=== PATIENT | female | born 1950 | race Caucasian/White ===

== ENCOUNTER 2017-02-08 22:34 | Observation (INO) | payer OTHER, MEDICARE ==
[2017-02-08] MEDS ORDERED: RX INFO: IV CONTRAST WAS GIVEN 1 EACH MISC MISCELLANE PRN (23:09)
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
[2017-02-08 23:53] LABS: Basophils % (A) 0 %; CH 30.6; CHCM 35.5; Eosinophils % (A) 1 %; HCT 37.3 % (34.0-46.0); HGB 12.5 gm/dL (11.4-16.0); Luc # (Auto) 0.05; Luc % (Auto) 1; Lymphocytes # (A) 1.1 k/uL (1.0-4.8); Lymphocytes % (A) 13 %; MCH 29.2 pg (25.0-35.0); MCHC 33.6 g/dL (31.0-37.0); MCV 86.8 fL (80.0-100.0); Mean Platelet Volume 7.7; Monocytes # (A) 0.3 k/uL (0-1.0); Monocytes % (A) 4 %; Neutrophils % (A) 82 %; RBC 4.29 m/uL (3.80-5.40); RDW 14.1 % (11.5-15.5); WBC 8.5 k/uL (3.8-10.6); WBC (Perox) 8.18
[2017-02-08 23:54] LABS: Appearance,Urine Clear (Clear); Bilirubin,Urine Negative (Negative); Glucose,Urine (UA) Negative (Negative); Ketones,Urine Negative (Negative); Leukocyte Esterase,Urine Negative (Negative); Nitrite,Urine Negative (Negative); Protein,Urine Negative (Negative); Specific Gravity,Urine 1.016 (1.001-1.035); UA Billing (MACRO vs. MICRO) CHEM; Urobilinogen,Urine <2.0 mg/dL (<2.0)
[2017-02-09 00:08] LABS: ALT 36 U/L (9-52); AST 22 U/L (14-36); Alcohol <10 mg/dL; Alkaline Phosphatase 77 U/L (38-126); Anion Gap 14 mmol/L; Blood Urea Nitrogen 19 mg/dL (7-17); Calcium 9.8 mg/dL (8.4-10.2); Carbon Dioxide 21 mmol/L (22-30); Chloride 99 mmol/L (98-107); Glucose 142 mg/dL (74-99); Non-African American GFR(MDRD) 35 (>60 ml/min/1.73 sqM); Potassium 3.8 mmol/L (3.5-5.1); Sodium 134 mmol/L (137-145); Total Bilirubin 0.5 mg/dL (0.2-1.3); Total Protein 6.7 g/dL (6.3-8.2)
[2017-02-09 00:10] LABS: INR 1.1 (<1.2); Partial Thromboplastin Time 24.2 sec (22.0-30.0); Prothrombin Time 11.2 sec (9.0-12.0)
[2017-02-09] MEDS ORDERED: SODIUM CHLORIDE 0.9% 2,500 ML IV ONE (00:15)
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
[2017-02-09] MEDS ORDERED: NALOXONE 0.4 MG/ML 1 ML VIAL IV PRN (02:52)
[2017-02-09] MEDS ORDERED: ONDANSETRON 4 MG/2 ML VIAL IVP PRN (02:52)
[2017-02-09] MEDS: SODIUM CHLORIDE 0.9% 1,000 ML IV SCH (03:39)
[2017-02-09] MEDS ORDERED: LORazepam 2 MG/ML INJ IV STA (03:54)
[2017-02-09 05:23] VITALS: BMI 38.1
[2017-02-09] MEDS: FAMOTIDINE 20 MG TAB PO SCH ×2 (08:28→20:30)
[2017-02-09] MEDS ORDERED: LORATADINE 10 MG TAB PO PRN (11:22)
[2017-02-09] MEDS: LISINOPRIL-HCTZ 20-12.5 MG 1 EACH TAB PO SCH ×2 (13:41→20:30)
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
[2017-02-09] MEDS: ATORVASTATIN 20 MG TAB PO SCH (20:30)
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
[2017-02-10] MEDS: SODIUM CHLORIDE 0.9% 1,000 ML IV SCH (02:52)
[2017-02-10] MEDS: FAMOTIDINE 20 MG TAB PO SCH (08:38)
[2017-02-10] MEDS: LISINOPRIL-HCTZ 20-12.5 MG 1 EACH TAB PO SCH ×2 (08:38→22:10)
[2017-02-10 08:56] LABS: Basophils % (A) 1 %; CH 29.5; CHCM 33.1; Eosinophils # (A) 0.1 k/uL (0-0.7); Eosinophils % (A) 1 %; HCT 38.5 % (34.0-46.0); HDW 2.56; HGB 12.6 gm/dL (11.4-16.0); Luc # (Auto) 0.06; Luc % (Auto) 1; Lymphocytes # (A) 1.5 k/uL (1.0-4.8); Lymphocytes % (A) 27 %; MCH 29.4 pg (25.0-35.0); MCHC 32.8 g/dL (31.0-37.0); MCV 89.6 fL (80.0-100.0); Mean Platelet Volume 7.2; Monocytes # (A) 0.3 k/uL (0-1.0); Monocytes % (A) 5 %; Neutrophils # (A) 3.7 k/uL (1.3-7.7); Neutrophils % (A) 66 %; RDW 13.2 % (11.5-15.5); WBC 5.6 k/uL (3.8-10.6); WBC (Perox) 5.75
[2017-02-10] MEDS ORDERED: amLODIPine 5 MG TAB PO SCH (09:00)
[2017-02-10 09:51] LABS: Calcium 9.4 mg/dL (8.4-10.2); Potassium 4.2 mmol/L (3.5-5.1); Total Bilirubin 0.6 mg/dL (0.2-1.3); Total Protein 6.2 g/dL (6.3-8.2)
[2017-02-10 11:20] LABS: Hemoglobin A1C 5.6 % (4.2-6.1)
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
[2017-02-10] MEDS ORDERED: OLANZapine 2.5 MG TAB PO SCH (19:00)
[2017-02-10] MEDS ORDERED: ACETAMINOPHEN TAB 325 MG TAB PO PRN (21:36)
[2017-02-10] MEDS: ATORVASTATIN 20 MG TAB PO SCH (22:10)
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
[2017-02-11] MEDS: SODIUM CHLORIDE 0.9% 1,000 ML IV SCH (03:43)
[2017-02-11] MEDS: FAMOTIDINE 20 MG TAB PO SCH (10:32)
[2017-02-11] MEDS: LISINOPRIL-HCTZ 20-12.5 MG 1 EACH TAB PO SCH ×2 (10:32→20:27)
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
[2017-02-11] MEDS ORDERED: OLANZapine 5 MG TAB PO SCH (19:00)
[2017-02-11] MEDS: ATORVASTATIN 20 MG TAB PO SCH (20:27)
[2017-02-12] MEDS: SODIUM CHLORIDE 0.9% 1,000 ML IV SCH (05:41)
[2017-02-12] MEDS: LISINOPRIL-HCTZ 20-12.5 MG 1 EACH TAB PO SCH (09:51)
[2017-02-12] MEDS: FAMOTIDINE 20 MG TAB PO SCH (09:51)
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
[2017-02-12 15:22] VITALS: BP 155/82; PULSE 62; RESP 15; TEMP 98.9
== END 2017-02-12 18:00 | disposition home or self-care (01) ==
LOC: EC 22:34 → 6SEL 02-09 02:52 → INTOOBSV 02-09 02:52 → 5MS5E 02-09 16:34
PROVIDERS: ADMIT Internal Medicine; ATTEND Internal Medicine
DX: F20.9 Schizophrenia, unspecified (principal); N17.9 Acute kidney failure, unspecified; I10 Essential (primary) hypertension; E86.9 Volume depletion, unspecified; E87.2 Acidosis; S80.02XA Contusion of left knee, initial encounter; V47.5XXA Car driver injured in collision with fixed or stationary object in traffic accident, initial encounter; Y93.89 Activity, other specified; Z79.899 Other long term (current) drug therapy; E78.5 Hyperlipidemia, unspecified; K21.9 Gastro-esophageal reflux disease without esophagitis
CPT/HCPCS: 99285 ×3; 96374; 82075; 96361; 36415 ×2; 86900; 86901; 80053 ×2; 84443; 83036; 83605 ×2; 84484; 85025 ×2; 85610; 85730; 86850; 81003; 80306; 80320; 71010; 73562; 72125; 70450; 74177; G0378 ×2; J2060; Q9967; 93005; 96360

== ENCOUNTER 2017-02-25 22:32 | Observation (INO) | payer MEDICARE ==
[2017-02-26 00:19] LABS: Basophils % (A) 0 %; CH 30.2; CHCM 34.3; Eosinophils % (A) 1 %; HCT 42.2 % (34.0-46.0); HDW 2.32; HGB 13.6 gm/dL (11.4-16.0); Luc # (Auto) 0.05; Luc % (Auto) 1; Lymphocytes % (A) 11 %; MCH 28.5 pg (25.0-35.0); MCHC 32.3 g/dL (31.0-37.0); MCV 88.3 fL (80.0-100.0); Monocytes # (A) 0.3 k/uL (0-1.0); Monocytes % (A) 4 %; Neutrophils # (A) 7.6 k/uL (1.3-7.7); Neutrophils % (A) 84 %; RBC 4.78 m/uL (3.80-5.40); RDW 13.7 % (11.5-15.5); WBC 9.1 k/uL (3.8-10.6); WBC (Perox) 8.66
[2017-02-26 00:22] LABS: Appearance,Urine Cloudy (Clear); Bilirubin,Urine 1+ (Negative); Glucose,Urine (UA) Negative (Negative); Ketones,Urine 1+ (Negative); Leukocyte Esterase,Urine Trace (Negative); Mucus,Urine Occasional /hpf; Nitrite,Urine Negative (Negative); Particle Count 8861; Protein,Urine Trace (Negative); RBC,Urine 2 /hpf (0-5); Squamous Epithelial Cell,Urine 4 /hpf (0-4); UA Billing (MACRO vs. MICRO) MICRO; WBC,Urine 2 /hpf (0-5)
[2017-02-26 00:31] LABS: ALT 44 U/L (9-52); AST 29 U/L (14-36); Acetaminophen <10.0 ug/mL; Alcohol <10 mg/dL; Alkaline Phosphatase 76 U/L (38-126); Anion Gap 15 mmol/L; Bilirubin, Delta 0.2 mg/dL (0.0-0.2); Blood Urea Nitrogen 29 mg/dL (7-17); Calcium 10.3 mg/dL (8.4-10.2); Carbon Dioxide 21 mmol/L (22-30); Chloride 101 mmol/L (98-107); Glucose 113 mg/dL (74-99); Non-African American GFR(MDRD) 19 (>60 ml/min/1.73 sqM); Salicylate <1.0 mg/dL; Sodium 137 mmol/L (137-145); Total Bilirubin 0.9 mg/dL (0.2-1.3); Total Protein 7.6 g/dL (6.3-8.2)
[2017-02-26] MEDS ORDERED: SODIUM CHLORIDE 0.9% 1,000 ML IV STA ×2 (00:51→00:56)
[2017-02-26] MEDS ORDERED: NALOXONE 0.4 MG/ML 1 ML VIAL IV PRN ×2 (00:57→02:32)
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
[2017-02-26 03:19] VITALS: RESP 16; BMI 36.3
[2017-02-26 07:40] LABS: Basophils % (A) 0 %; CH 29.8; Eosinophils % (A) 1 %; HCT 40.6 % (34.0-46.0); HDW 2.29; HGB 13.7 gm/dL (11.4-16.0); Luc # (Auto) 0.08; Luc % (Auto) 1; Lymphocytes # (A) 1.1 k/uL (1.0-4.8); Lymphocytes % (A) 13 %; MCH 30.5 pg (25.0-35.0); MCHC 33.7 g/dL (31.0-37.0); MCV 90.6 fL (80.0-100.0); Mean Platelet Volume 7.5; Monocytes # (A) 0.4 k/uL (0-1.0); Monocytes % (A) 5 %; Neutrophils # (A) 6.7 k/uL (1.3-7.7); Neutrophils % (A) 81 %; RBC 4.48 m/uL (3.80-5.40); RDW 13.2 % (11.5-15.5); WBC 8.3 k/uL (3.8-10.6); WBC (Perox) 8.68
[2017-02-26 07:54] LABS: Calcium 10.2 mg/dL (8.4-10.2); Potassium 4.6 mmol/L (3.5-5.1)
[2017-02-26] MEDS ORDERED: FAMOTIDINE 20 MG TAB PO SCH (09:00)
[2017-02-26] MEDS: HEPARIN SODIUM,PORCINE 5,000 UNIT/ML 1 ML VIAL SQ SCH ×2 (09:03→15:06)
--- NOTE | 2017-02-26 09:10 | P.PN ---
Subjective Progress Note Date: 02/26/17 Principal diagnosis: Paranoia Patient is a 66-year-old female past medical history of hypertension, dyslipidemia, schizophrenia who was initially brought to the ER secondary to delusions. Patient was brought in by police reserves commander order to get evaluated by psychiatrist. In the ER she underwent an extensive evaluation was found to have dehydration with acute kidney injury and chronic kidney disease. Subsequently she was admitted to the general medical floor for treatment of her acute kidney injury. Patient refused IV access and IV fluids secondary to her having an IV broken off in her arm prior. The next morning with oral fluid hydration patient's creatinine had decreased from 2.5-2.37. Patient seen and examined at bedside. She denies any chest pain, shortness of breath, nausea, vomiting, or diarrhea. She is aware that she is in the hospital "to get better" she knows she needs to be evaluated by the psychiatrist. Objective - Vital Signs Vital signs: Vital Signs Temp 98.7 F 02/26/17 07:00 Pulse 72 02/26/17 07:00 Resp 16 02/26/17 07:00 BP 116/68 02/26/17 07:00 Pulse Ox 99 02/26/17 07:00 Intake & Output 02/25/17 02/26/17 02/26/17 18:59 06:59 18:59 Weight 90 kg Other: Voiding Method Toilet # Voids 2 # Bowel Movements 1 - Exam General: non toxic, no distress, appears at stated age, obese Derm: no rashes, no lesions Head: atraumatic, normocephalic, symmetric Eyes: EOMI, no lid lag, anicteric sclera ENT: no post nasal drip, no thrush Mouth: no lip lesion, mucus membranes moist Cardiovascular: S1S2 reg, no murmur, positive posterior tibial pulse bilateral, Lungs: CTA bilateral, no rhonchi, no rales , no accessory muscle use Abdominal: soft, nontender to palpation, no guarding, no appreciable organomegaly Ext: no gross muscle atrophy, no edema, no contractures Neuro: CN II-XI grossly intact, no focal neuro deficits Psych: Alert, knows she is in the hospital, flat affect - Labs CBC & Chem 7: 02/26/17 07:10 02/26/17 07:10 Labs: Abnormal Lab Results - Last 24 Hours (Table) 02/26/17 02/26/17 02/26/17 Range/Units 00:08 00:08 07:10 Carbon Dioxide 21 L (22-30) mmol/L BUN 29 H 31 H (7-17) mg/dL Creatinine 2.50 H 2.37 H (0.52-1.04) mg/dL Glucose 113 H 100 H (74-99) mg/dL Calcium 10.3 H (8.4-10.2) mg/dL Urine Appearance Cloudy H (Clear) Urine Protein Trace H (Negative) Urine Ketones 1+ H (Negative) Urine Bilirubin 1+ H (Negative) Ur Leukocyte Esterase Trace H (Negative) Hyaline Casts 70 H (0-2) /lpf Urine Mucus Occasional H (None) /hpf Assessment and Plan Plan: Acute kidney injury on chronic kidney disease stage III -Baseline creatinine 1.4 -Oral fluid hydration -Repeat basic metabolic profile at 12:30 today -Hold lisinopril and hydrochlorothiazide Dehydration -Treatment as above Schizophrenia with delusions -Await psychiatry evaluation Hypertension, currently controlled -Currently off all blood pressure medication secondary to dehydration -Follow blood pressures Dyslipidemia -Continue Lipitor Recheck basic metabolic profile at 12:30, if creatinine continues to down trend with oral hydration patient will be medically stable for transition to the mental health unit. DVT prophylaxis: Heparin subcu Discussed with: Pt, nursing, case management Anticipated discharge: [address]: Psychiatry A total of 35 minutes was spent on the care of this complex patient more than 50 % of the time was spent in counseling and care coordination.
[2017-02-26 13:03] LABS: Calcium 9.8 mg/dL (8.4-10.2); Potassium 4.9 mmol/L (3.5-5.1)
[2017-02-26 14:42] VITALS: BP 117/74; PULSE 105; TEMP 97.5
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
[2017-02-26] MEDS ORDERED: OLANZapine 5 MG TAB PO SCH (19:00)
[2017-02-26] MEDS ORDERED: ATORVASTATIN 20 MG TAB PO SCH (21:00)
== END 2017-02-26 18:17 ==
LOC: EC 22:32 → 3SUR 02-26 00:59
PROVIDERS: ADMIT Internal Medicine; ATTEND Internal Medicine
DX: Z04.6 Encounter for general psychiatric examination, requested by authority (principal); F20.9 Schizophrenia, unspecified; F22 Delusional disorders; E86.0 Dehydration; I12.9 Hypertensive chronic kidney disease with stage 1 through stage 4 chronic kidney disease, or unspecified chronic kidney disease; N17.9 Acute kidney failure, unspecified; E78.5 Hyperlipidemia, unspecified; N18.3 Chronic kidney disease, stage 3 (moderate); Z79.899 Other long term (current) drug therapy; Z82.49 Family history of ischemic heart disease and other diseases of the circulatory system
CPT/HCPCS: 99285; 82075; 36415; 93005; 80048; 80076; 85025; 81001; 80306; 83520 ×2; 80320; G0378

== ENCOUNTER → 2018-11-16 | Outpatient (CLI) | payer MEDICARE | END | disposition home or self-care (01) | LOC: RADMRIMAIN 13:12 | PROVIDERS: ATTEND Psychiatry & Neurology Neurology | DX: Z53.9 Procedure and treatment not carried out, unspecified reason (principal) ==

== ENCOUNTER → 2018-12-18 | Outpatient (CLI) | payer MEDICARE ==
--- NOTE | 2018-12-18 18:43 | MR ---
EXAMINATION TYPE: MR brain wo con DATE OF EXAM: 12/18/2018 COMPARISON: NONE HISTORY: Other amnesia / Schizophrenia TECHNIQUE: Multiplanar, multisequence images of the brain and brainstem is performed without intravenous contras t. FINDINGS: Diffusion weighted images demonstrate no evidence of a recent infarct or other diffusion ab normality. There is no extra-axial fluid collection. Only few scattered foci of T2/FLAIR hyperintens ity are seen within the periventricular and subcortical white matter. The ventricular system and cis ternal spaces are symmetrically prominent most compatible with age-related volume loss. Midline structures demonstrate normal morphology. The craniocervical junction appears within normal limits. The dural venous sinuses appear patent. The visualized sinuses are clear and the globes are i ntact. IMPRESSION: 1. No acute infarct, midline shift or mass effect. 2. Cerebral atrophy has no lobar predilection is generalized and diffuse most compatible with age-rel ated atrophy. 3. Only few foci of nonspecific white matter change, likely on the basis of chronic microangiopathy.
== END ==
LOC: RADMRIMAIN 08:06
PROVIDERS: ATTEND Psychiatry & Neurology Neurology
DX: G31.9 Degenerative disease of nervous system, unspecified (principal); R90.89 Other abnormal findings on diagnostic imaging of central nervous system; F20.9 Schizophrenia, unspecified
CPT/HCPCS: 70551

== ENCOUNTER 2019-01-19 17:13 | Emergency (ER) | payer MEDICARE ==
[2019-01-19 17:19] VITALS: RESP 18
[2019-01-19] MEDS ORDERED: SODIUM CHLORIDE 0.9% 1,000 ML IV ONE (17:27)
--- NOTE | 2019-01-19 17:29 | ED ---
Altered Mental Status HPI <VeronciaLeon - Last Filed: 01/19/19 22:41> - General Source: patient, police, RN notes reviewed, old records reviewed Mode of arrival: ambulatory Limitations: altered mental status, physical limitation - History of Present Illness MD Complaint: altered mental status, confusion -: unknown Severity: moderate Consistency of Symptoms: unknown Context: history of similar presentation <Jorge Toledo - Last Filed: 01/20/19 12:28> - General Chief Complaint: Altered Mental Status Stated Complaint: Confusion Time Seen by Provider: 01/19/19 17:27 - History of Present Illness Initial Comments: This is a 68-year-old female is a poor historian. Patient resents today for altered mental status but in by PD for evaluation regarding not acting appropriately, altered. Patient has history of mental illness. Denies significant drugs or alcohol. (Jorge Toledo) - Related Data Home Medications Medication Instructions Recorded Confirmed Famotidine [Pepcid] 20 mg PO BID 01/19/19 01/19/19 Memantine HCl [Namenda] 5 mg PO DAILY 01/19/19 01/19/19 OLANZapine [ZyPREXA] 10 mg PO BID 01/19/19 01/19/19 Previous Rx's Medication Instructions Recorded Atorvastatin [Lipitor] 20 mg PO HS #30 tab 03/11/17 Lisinopril-Hctz 20-12.5 mg 1 tab PO BID #60 tab 03/11/17 [Zestoretic 20-12.5] Allergies Allergy/AdvReac Type Severity Reaction Status Date / Time No Known Allergies Allergy Verified 01/19/19 19:28 Review of Systems ROS Other: All systems not noted in ROS Statement are negative. <Leon Martin - Last Filed: 01/19/19 22:41> ROS Other: All systems not noted in ROS Statement are negative. <Jorge Toledo - Last Filed: 01/20/19 12:28> ROS Statement: Those systems with pertinent positive or pertinent negative responses have been documented in the HPI. Past Medical History Past Medical History: Hyperlipidemia, Hypertension History of Any Multi-Drug Resistant Organisms: None Reported Past Surgical History: Section Past Anesthesia/Blood Transfusion Reactions: No Reported Reaction Past Psychological History: No Psychological Hx Reported, Schizoaffective Disorder, Schizophrenia Smoking Status: Never smoker Past Alcohol Use History: None Reported Past Drug Use History: None Reported - Past Family History Mother Family Medical History: No Reported History Additional Family Medical History / Comment(s): father with heart disease <Jorge Toledo - Last Filed: 01/20/19 12:28> General Exam Limitations: altered mental status General appearance: alert, in no apparent distress Head exam: Present: atraumatic, normocephalic, normal inspection Eye exam: Present: normal appearance, PERRL, EOMI. Absent: scleral icterus, conjunctival injection, periorbital swelling ENT exam: Present: normal exam, mucous membranes moist Neck exam: Present: normal inspection. Absent: tenderness, meningismus, lymphadenopathy Respiratory exam: Present: normal lung sounds bilaterally. Absent: respiratory distress, wheezes, rales, rhonchi, stridor Cardiovascular Exam: Present: regular rate, normal rhythm, normal heart sounds. Absent: systolic murmur, diastolic murmur, rubs, gallop, clicks GI/Abdominal exam: Present: soft, normal bowel sounds. Absent: distended, tenderness, guarding, rebound, rigid Extremities exam: Present: normal inspection, full ROM, normal capillary refill. Absent: tenderness, pedal edema, joint swelling, calf tenderness Back exam: Present: normal inspection Neurological exam: Present: alert, oriented X3, CN II-XII intact Psychiatric exam: Present: normal affect, normal mood Skin exam: Present: warm, dry, intact, normal color. Absent: rash <Jorge Toledo - Last Filed: 01/20/19 12:28> Course <Jorge Toledo - Last Filed: 01/20/19 12:28> Vital Signs 01/19/19 01/19/19 01/19/19 17:15 19:14 22:54 Temperature 97.9 F 98.0 F 98.0 F Pulse Rate 89 68 79 Respiratory 18 18 18 Rate Blood Pressure 123/77 147/70 152/84 O2 Sat by Pulse 96 97 95 Oximetry - Reevaluation(s) Reevaluation #1: 01/19/19 17:38 Medical records reviewed (Jorge Toledo) Reevaluation #2: 01/19/19 19:49 Medically clear for psychiatric evaluation (Jorge Toledo) Medical Decision Making - Lab Data Result diagrams: 01/19/19 17:40 01/19/19 17:40 <Leon Martin - Last Filed: 01/19/19 22:41> - Lab Data Result diagrams: 01/19/19 17:40 01/19/19 17:40 - EKG Data -: EKG Interpreted by Me (EKG shows sinus rhythm of 80, TX 160, QRS 90, QTc 417) - Radiology Data Radiology results: report reviewed (CT brain is negative for acute disease), image reviewed <Jorge Toledo - Last Filed: 01/20/19 12:28> - Medical Decision Making 68 female the ER patient was seen and evaluated with psychiatry here in the ER. Patient deemed stable for discharge home with acute schizophrenic Exacerbation (Jorge Toledo) - Lab Data Lab Results 01/19/19 01/19/19 01/19/19 Range/Units 17:40 17:40 17:40 WBC 6.4 (3.8-10.6) k/uL RBC 3.92 (3.80-5.40) m/uL Hgb 11.6 (11.4-16.0) gm/dL Hct 34.8 (34.0-46.0) % MCV 88.7 (80.0-100.0) fL MCH 29.7 (25.0-35.0) pg MCHC 33.4 (31.0-37.0) g/dL RDW 14.8 (11.5-15.5) % Plt Count 288 (150-450) k/uL Neutrophils % 70 % Lymphocytes % 23 % Monocytes % 5 % Eosinophils % 1 % Basophils % 1 % Neutrophils # 4.5 (1.3-7.7) k/uL Lymphocytes # 1.5 (1.0-4.8) k/uL Monocytes # 0.3 (0-1.0) k/uL Eosinophils # 0.0 (0-0.7) k/uL Basophils # 0.0 (0-0.2) k/uL PT 9.8 (9.0-12.0) sec INR 0.9 (<1.2) APTT 24.8 (22.0-30.0) sec Sodium 139 (137-145) mmol/L Potassium 4.4 (3.5-5.1) mmol/L Chloride 105 (98-107) mmol/L Carbon Dioxide 25 (22-30) mmol/L Anion Gap 9 mmol/L BUN 22 H (7-17) mg/dL Creatinine 1.81 H (0.52-1.04) mg/dL Est GFR (CKD-EPI)AfAm 32 (>60 ml/min/1.73 sqM) Est GFR (CKD-EPI)NonAf 28 (>60 ml/min/1.73 sqM) Glucose 121 H (74-99) mg/dL Calcium 9.4 (8.4-10.2) mg/dL Phosphorus 3.5 (2.5-4.5) mg/dL Magnesium 1.6 (1.6-2.3) mg/dL Total Bilirubin 0.3 (0.2-1.3) mg/dL AST 24 (14-36) U/L ALT 33 (9-52) U/L Alkaline Phosphatase 84 (38-126) U/L Ammonia (<30) umol/L Creatine Kinase 319 H (30-135) U/L Troponin I (0.000-0.034) ng/mL Total Protein 6.5 (6.3-8.2) g/dL Albumin 3.8 (3.5-5.0) g/dL Salicylates <1.0 mg/dL Acetaminophen <10.0 ug/mL Serum Alcohol <10 mg/dL 01/19/19 01/19/19 Range/Units 17:40 17:40 WBC (3.8-10.6) k/uL RBC (3.80-5.40) m/uL Hgb (11.4-16.0) gm/dL Hct (34.0-46.0) % MCV (80.0-100.0) fL MCH (25.0-35.0) pg MCHC (31.0-37.0) g/dL RDW (11.5-15.5) % Plt Count (150-450) k/uL Neutrophils % % Lymphocytes % % Monocytes % % Eosinophils % % Basophils % % Neutrophils # (1.3-7.7) k/uL Lymphocytes # (1.0-4.8) k/uL Monocytes # (0-1.0) k/uL Eosinophils # (0-0.7) k/uL Basophils # (0-0.2) k/uL PT (9.0-12.0) sec INR (<1.2) APTT (22.0-30.0) sec Sodium (137-145) mmol/L Potassium (3.5-5.1) mmol/L Chloride (98-107) mmol/L Carbon Dioxide (22-30) mmol/L Anion Gap mmol/L BUN (7-17) mg/dL Creatinine (0.52-1.04) mg/dL Est GFR (CKD-EPI)AfAm (>60 ml/min/1.73 sqM) Est GFR (CKD-EPI)NonAf (>60 ml/min/1.73 sqM) Glucose (74-99) mg/dL Calcium (8.4-10.2) mg/dL Phosphorus (2.5-4.5) mg/dL Magnesium (1.6-2.3) mg/dL Total Bilirubin (0.2-1.3) mg/dL AST (14-36) U/L ALT (9-52) U/L Alkaline Phosphatase (38-126) U/L Ammonia <9 (<30) umol/L Creatine Kinase (30-135) U/L Troponin I <0.012 (0.000-0.034) ng/mL Total Protein (6.3-8.2) g/dL Albumin (3.5-5.0) g/dL Salicylates mg/dL Acetaminophen ug/mL Serum Alcohol mg/dL Disposition Is patient prescribed a controlled substance at d/c from ED?: No <Leon Martin - Last Filed: 01/19/19 22:41> <Jorge Toledo - Last Filed: 01/20/19 12:28> Clinical Impression: Schizophrenia Disposition: HOME SELF-CARE Condition: Fair Instructions (If sedation given, give patient instructions): Schizophrenia (ED) Referrals: Molly Bautista DO [Primary Care Provider] - 1-2 days
[2019-01-19 18:08] LABS: Basophils % (A) 1 %; Eosinophils % (A) 1 %; HCT 34.8 % (34.0-46.0); HGB 11.6 gm/dL (11.4-16.0); Lymphocytes # (A) 1.5 k/uL (1.0-4.8); Lymphocytes % (A) 23 %; MCH 29.7 pg (25.0-35.0); MCHC 33.4 g/dL (31.0-37.0); MCV 88.7 fL (80.0-100.0); Mean Platelet Volume 7.3; Monocytes # (A) 0.3 k/uL (0-1.0); Monocytes % (A) 5 %; Neutrophils # (A) 4.5 k/uL (1.3-7.7); Neutrophils % (A) 70 %; Platelet Count 288 k/uL (150-450); RBC 3.92 m/uL (3.80-5.40); RDW 14.8 % (11.5-15.5); WBC 6.4 k/uL (3.8-10.6)
[2019-01-19 18:17] LABS: INR 0.9 (<1.2); Partial Thromboplastin Time 24.8 sec (22.0-30.0); Prothrombin Time 9.8 sec (9.0-12.0)
[2019-01-19 18:32] LABS: ALT 33 U/L (9-52); AST 24 U/L (14-36); Acetaminophen <10.0 ug/mL; African American GFR (CKD) 32 (>60 ml/min/1.73 sqM); Albumin 3.8 g/dL (3.5-5.0); Alcohol <10 mg/dL; Alkaline Phosphatase 84 U/L (38-126); Anion Gap 9 mmol/L; Blood Urea Nitrogen 22 mg/dL (7-17); Calcium 9.4 mg/dL (8.4-10.2); Carbon Dioxide 25 mmol/L (22-30); Chloride 105 mmol/L (98-107); Creatine Kinase 319 U/L (30-135); Glucose 121 mg/dL (74-99); Magnesium 1.6 mg/dL (1.6-2.3); Phosphorus 3.5 mg/dL (2.5-4.5); Potassium 4.4 mmol/L (3.5-5.1); Salicylate <1.0 mg/dL; Sodium 139 mmol/L (137-145); Total Bilirubin 0.3 mg/dL (0.2-1.3); Total Protein 6.5 g/dL (6.3-8.2)
[2019-01-19 19:15] VITALS: TEMP 98
--- NOTE | 2019-01-19 19:22 | CT ---
EXAMINATION: CT brain wo con DATE AND TIME: 01/19/2019 6:17 PM CLINICAL INDICATION: PHH; altered mental status TECHNIQUE: Standard departmental protocol.; 1083.4 COMPARISON: CT 02/09/2017 FINDINGS: The calvarium is intact. There is no intracranial hemorrhage. There is no intracranial mass or mass effect. No definite new intra-axial or extra-axial attenuation defect. The paranasal sinuses, middle ear cavities, and mastoid sinus air cells are clear. The orbits are unremarkable. IMPRESSION: NO ACUTE PROCESS.
[2019-01-19 22:55] VITALS: BP 152/84; PULSE 79
== END 2019-01-19 22:55 | disposition home or self-care (01) ==
LOC: EC 17:13
DX: F20.9 Schizophrenia, unspecified (principal); Z79.899 Other long term (current) drug therapy
CPT/HCPCS: 99285 ×2; 96360 ×2; 96361 ×5; 82075; 36415; 93005; 80053; 82140; 82550; 83735; 84100; 84484; 85025; 85610; 85730; 83520; 70450; G0480 ×2; 80320; 80329

== ENCOUNTER 2021-06-07 02:08 | Emergency (ER) | payer MEDICARE ==
[2021-06-07 02:19] VITALS: RESP 18
--- NOTE | 2021-06-07 02:20 | ED ---
Recheck HPI - General Chief Complaint: Recheck/Abnormal Lab/Rx Stated Complaint: Peg Tube came out Time Seen by Provider: 06/07/21 02:13 Source: EMS, RN notes reviewed, old records reviewed Mode of arrival: EMS Limitations: altered mental status - History of Present Illness Initial Comments: This is a 70-year-old female is a poor historian, patient did pull out her PEG tube and her Augustin. Patient transferred to our facility for replacement. She is otherwise without complaint MD Complaint: wound re-check -: hour(s) Returns Today for: persistent/worsening pain related to initial visit Symptoms Since Prior Visit: no new symptoms Context: planned re-check Associated Symptoms: none Treatments Prior to Arrival: other medications - Related Data Home Medications Medication Instructions Recorded Confirmed Famotidine [Pepcid] 20 mg PO BID 01/19/19 01/19/19 Memantine HCl [Namenda] 5 mg PO DAILY 01/19/19 01/19/19 OLANZapine [ZyPREXA] 10 mg PO BID 01/19/19 01/19/19 Previous Rx's Medication Instructions Recorded Atorvastatin [Lipitor] 20 mg PO HS #30 tab 03/11/17 Lisinopril-Hctz 20-12.5 mg 1 tab PO BID #60 tab 03/11/17 [Zestoretic 20-12.5] Allergies Allergy/AdvReac Type Severity Reaction Status Date / Time No Known Allergies Allergy Verified 01/19/19 19:28 Review of Systems ROS Statement: Those systems with pertinent positive or pertinent negative responses have been documented in the HPI. ROS Other: All systems not noted in ROS Statement are negative. Past Medical History Past Medical History: Hyperlipidemia, Hypertension History of Any Multi-Drug Resistant Organisms: None Reported Past Surgical History: Section Past Anesthesia/Blood Transfusion Reactions: No Reported Reaction Past Psychological History: No Psychological Hx Reported, Schizoaffective Disorder, Schizophrenia Smoking Status: Smoker, current status unknown Past Alcohol Use History: None Reported Past Drug Use History: None Reported - Past Family History Mother Family Medical History: No Reported History Additional Family Medical History / Comment(s): father with heart disease General Exam Limitations: altered mental status General appearance: alert, in no apparent distress Head exam: Present: atraumatic, normocephalic, normal inspection Eye exam: Present: normal appearance, PERRL, EOMI. Absent: scleral icterus, conjunctival injection, periorbital swelling ENT exam: Present: normal exam, mucous membranes moist Neck exam: Present: normal inspection. Absent: tenderness, meningismus, lymphadenopathy Respiratory exam: Present: normal lung sounds bilaterally. Absent: respiratory distress, wheezes, rales, rhonchi, stridor Cardiovascular Exam: Present: regular rate, normal rhythm, normal heart sounds. Absent: systolic murmur, diastolic murmur, rubs, gallop, clicks GI/Abdominal exam: Present: soft, normal bowel sounds. Absent: distended, tenderness, guarding, rebound, rigid Extremities exam: Present: normal inspection, full ROM, normal capillary refill. Absent: tenderness, pedal edema, joint swelling, calf tenderness Back exam: Present: normal inspection Neurological exam: Present: alert, oriented X3, CN II-XII intact Psychiatric exam: Present: normal affect, normal mood Skin exam: Present: warm, dry, intact, normal color. Absent: rash Course Vital Signs 06/07/21 06/07/21 02:11 02:18 Temperature 97.8 F Pulse Rate 80 79 Respiratory 18 18 Rate Blood Pressure 139/64 140/67 O2 Sat by Pulse 98 98 Oximetry - Reevaluation(s) Reevaluation #1: 06/07/21 02:51 medical records is reviewed Reevaluation #2: 06/07/21 02:51 Tube is replaced without incident Reevaluation #3: 06/07/21 02:51 Patient at home informed of results questions answered Procedures - Feeding Tube Replacement Reason for Replacement: fell out, patient removed/pulled out Type of Tube: gastrostomy Use of Tube: medications and feeding Insertion Site Prior to Procedure: clean Tube Used for Reinsertion: patient's own Anesthesia Used: other anesthetic Used for Assist in Placement: stylet Verification of Placement: gastrografin injection Tube Secured by: tape/dressing Patient Tolerated Procedure: well Medical Decision Making - Medical Decision Making 70 female after having a Augustin and PEG tube. Both have been replaced, patient can be discharged home Disposition Clinical Impression: S/P percutaneous endoscopic gastrostomy (PEG) tube placement Disposition: HOME SELF-CARE Condition: Good Instructions (If sedation given, give patient instructions): PEG Tube Insertion (DC) Is patient prescribed a controlled substance at d/c from ED?: No Referrals: Michele,Molly B, DO [Primary Care Provider] - 1-2 days
[2021-06-07 03:53] VITALS: BP 135/54; PULSE 94; TEMP 98.7
== END 2021-06-07 03:53 | disposition home or self-care (01) ==
LOC: EC 02:08
DX: Z93.1 Gastrostomy status (principal); E78.5 Hyperlipidemia, unspecified; I10 Essential (primary) hypertension; F17.200 Nicotine dependence, unspecified, uncomplicated
CPT/HCPCS: 43762; 99283

== ENCOUNTER 2021-06-10 06:02 | Emergency (ER) | payer MEDICARE ==
[2021-06-10] MEDS ORDERED: SODIUM CHLORIDE 0.9% 1,000 ML IV STA ×2 (06:14→07:45)
[2021-06-10] MEDS ORDERED: ACETAMINOPHEN TAB 500 MG TAB PO STA (06:14)
[2021-06-10] MEDS ORDERED: ACETAMINOPHEN IV (For NPO) 1,000 MG in EMPTY BAG 1 BAG IVPB STA (06:31)
--- NOTE | 2021-06-10 06:54 | ED ---
General Adult HPI - General Chief complaint: Recheck/Abnormal Lab/Rx Stated complaint: PEG tube issues Time Seen by Provider: 06/10/21 06:08 Source: patient, EMS Mode of arrival: EMS - History of Present Illness Initial comments: 70-year-old female with a past medical history of hyperlipidemia, hypertension, chronic kidney disease, schizophrenia presents to the emergency room for possible infection. Patient was sent from the [facility] here on for evaluation of her abdomen. Patient has a PEG tube in place and apparently has had redness spreading from the PEG tube over to the right side of the abdomen. Patient is a poor historian and cannot give much history.Patient has no other complaints at this time including shortness of breath, chest pain, abdominal agnes n, nausea or vomiting, headache, or visual changes. - Related Data Home Medications Medication Instructions Recorded Confirmed OLANZapine [ZyPREXA] 10 mg PEG/G-TUBE HS 01/19/19 06/10/21 ALPRAZolam [Xanax] 0.25 mg PEG/G-TUBE Q6H PRN 06/10/21 06/10/21 Acetaminophen Tab [Tylenol] 650 mg PEG/G-TUBE Q4H PRN 06/10/21 06/10/21 Aspirin 81 mg PEG/G-TUBE DAILY 06/10/21 06/10/21 Atorvastatin [Lipitor] 40 mg PEG/G-TUBE HS 06/10/21 06/10/21 Cholecalciferol [Vitamin D3 (25 25 mcg PEG/G-TUBE DAILY 06/10/21 06/10/21 Mcg = 1000 Iu)] Citalopram Hydrobromide [CeleXA] 20 mg PEG/G-TUBE DAILY 06/10/21 06/10/21 Pantoprazole [Protonix] 40 mg PEG/G-TUBE DAILY 06/10/21 06/10/21 Sennosides [Senna] 8.6 mg PEG/G-TUBE BID PRN 06/10/21 06/10/21 Allergies Allergy/AdvReac Type Severity Reaction Status Date / Time Penicillins Allergy Unknown Verified 06/10/21 08:13 Review of Systems ROS Statement: Those systems with pertinent positive or pertinent negative responses have been documented in the HPI. ROS Other: All systems not noted in ROS Statement are negative. Past Medical History Past Medical History: Hyperlipidemia, Hypertension Additional Past Medical History / Comment(s): chronic kidney disease, rhabdomyolysis, failure to thrive History of Any Multi-Drug Resistant Organisms: None Reported Past Surgical History: Section Past Anesthesia/Blood Transfusion Reactions: No Reported Reaction Past Psychological History: No Psychological Hx Reported, Schizoaffective Disorder, Schizophrenia Smoking Status: Smoker, current status unknown Past Alcohol Use History: None Reported Past Drug Use History: None Reported - Past Family History Mother Family Medical History: No Reported History Additional Family Medical History / Comment(s): father with heart disease General Exam General appearance: alert, in no apparent distress Head exam: Present: atraumatic Eye exam: Present: normal appearance, PERRL, EOMI. Absent: scleral icterus, conjunctival injection ENT exam: Present: normal exam, mucous membranes moist Neck exam: Present: normal inspection, full ROM. Absent: tenderness Respiratory exam: Present: normal lung sounds bilaterally. Absent: respiratory distress, wheezes Cardiovascular Exam: Present: regular rate, normal rhythm, normal heart sounds GI/Abdominal exam: Present: distended (Patient has erythema stemming from PEG tube site across to the right side of the abdomen with induration noted on the right side of the abdomen.), normal bowel sounds Course Vital Signs 06/10/21 06/10/21 06/10/21 06:02 08:40 08:55 Temperature 101.1 F H Pulse Rate 109 H 108 H 108 H Respiratory 20 Rate Blood Pressure 118/62 O2 Sat by Pulse 98 Oximetry 06/10/21 09:06 Temperature Pulse Rate Respiratory Rate Blood Pressure 104/53 O2 Sat by Pulse Oximetry EKG Findings - EKG Comments: EKG Findings:: Sinus tachycardia, ventricular rate 103, OR interval 142, QTC 398 Medical Decision Making - Medical Decision Making She presents febrile and tachycardic. Blood pressure has remained stable. Patient has a very erythematous and indurated abdominal wall. pt is a poor historian. PEG tube is currently placed. CBC is unremarkable. CMP however shows me with hyperkalemia. Creatinine 3.37. Lactic acid 5.4. CT abdomen and pelvis shows extensive subcutaneous phlegmon and abscess with catheter coursing into a pocket within the subcutaneous fat. Patient initially presented as a full code so antibiotics were started, potassium was treated, she was given fluids. However on discussing this with her son and power of claims attorney Braden Weston he states that he was considering making her hospice tomorrow on Friday. I discussed this infection in depth with him and that treating it would likely require extensive surgical debridement, IV antibiotics, central line etc. He states that patient would not want this and he wants to make her hospice and DO NOT RESUSCITATE now. He states he has already spoken with hospitalist. I called [facility] however when they contacted and he states he had already spoken with [facility]. I therefore spoke with the [facility] several times. Currently awaiting intake nurse to call me back at 945 AM Spoke with [facility] again. They do not want to send her back to [facility]. They tried to send her back to her adult foster care facility however they are not able to take her back until tomorrow given they have to get the equipment in place. I spoke with Dr. García who will admit patient until that point. I spoke with Dr. Parra to make sure I could pull the PEG tube which he is fine with. Patient does not require any further surgical consultation as she is hospice. - Lab Data Result diagrams: 06/10/21 06:33 06/10/21 09:18 Lab Results 06/10/21 06/10/21 06/10/21 Range/Units 06:33 06:33 06:33 WBC 6.0 (3.8-10.6) k/uL RBC 3.42 L (3.80-5.40) m/uL Hgb 10.1 L (11.4-16.0) gm/dL Hct 32.3 L (34.0-46.0) % MCV 94.6 (80.0-100.0) fL MCH 29.6 (25.0-35.0) pg MCHC 31.4 (31.0-37.0) g/dL RDW 15.1 (11.5-15.5) % Plt Count 411 (150-450) k/uL MPV 8.2 Neutrophils % (Manual) 71 % Band Neuts % (Manual) 21 % Lymphocytes % (Manual) 4 % Monocytes % (Manual) 4 % Neutrophils # (Manual) 5.50 (1.3-7.7) k/uL Lymphocytes # (Manual) 0.24 L (1.0-4.8) k/uL Monocytes # (Manual) 0.24 (0-1.0) k/uL Nucleated RBCs 0 (0-0) /100 WBC Manual Slide Review Performed Toxic Vacuolation Present Hypochromasia Slight PT 11.5 (9.0-12.0) sec INR 1.1 (<1.2) APTT 23.6 (22.0-30.0) sec Sodium 127 L (137-145) mmol/L Potassium 6.3 H* (3.5-5.1) mmol/L Chloride 94 L (98-107) mmol/L Carbon Dioxide 18 L (22-30) mmol/L Anion Gap 15 mmol/L BUN 54 H (7-17) mg/dL Creatinine 3.37 H (0.52-1.04) mg/dL Est GFR (CKD-EPI)AfAm 15 (>60 ml/min/1.73 sqM) Est GFR (CKD-EPI)NonAf 13 (>60 ml/min/1.73 sqM) Glucose 129 H (74-99) mg/dL Lactic Ac Sepsis Rflx Plasma Lactic Acid Ethan (0.7-2.0) mmol/L Calcium 9.5 (8.4-10.2) mg/dL Magnesium (1.6-2.3) mg/dL Total Bilirubin 1.7 H (0.2-1.3) mg/dL AST 38 H (14-36) U/L ALT 33 (4-34) U/L Alkaline Phosphatase 76 (38-126) U/L Total Protein 6.0 L (6.3-8.2) g/dL Albumin 3.0 L (3.5-5.0) g/dL Coronavirus (PCR) (Not Detectd) 06/10/21 06/10/21 06/10/21 Range/Units 06:33 06:33 07:04 WBC (3.8-10.6) k/uL RBC (3.80-5.40) m/uL Hgb (11.4-16.0) gm/dL Hct (34.0-46.0) % MCV (80.0-100.0) fL MCH (25.0-35.0) pg MCHC (31.0-37.0) g/dL RDW (11.5-15.5) % Plt Count (150-450) k/uL MPV Neutrophils % (Manual) % Band Neuts % (Manual) % Lymphocytes % (Manual) % Monocytes % (Manual) % Neutrophils # (Manual) (1.3-7.7) k/uL Lymphocytes # (Manual) (1.0-4.8) k/uL Monocytes # (Manual) (0-1.0) k/uL Nucleated RBCs (0-0) /100 WBC Manual Slide Review Toxic Vacuolation Hypochromasia PT (9.0-12.0) sec INR (<1.2) APTT (22.0-30.0) sec Sodium (137-145) mmol/L Potassium (3.5-5.1) mmol/L Chloride (98-107) mmol/L Carbon Dioxide (22-30) mmol/L Anion Gap mmol/L BUN (7-17) mg/dL Creatinine (0.52-1.04) mg/dL Est GFR (CKD-EPI)AfAm (>60 ml/min/1.73 sqM) Est GFR (CKD-EPI)NonAf (>60 ml/min/1.73 sqM) Glucose (74-99) mg/dL Lactic Ac Sepsis Rflx Y Plasma Lactic Acid Ethan 5.4 H* (0.7-2.0) mmol/L Calcium (8.4-10.2) mg/dL Magnesium 2.1 (1.6-2.3) mg/dL Total Bilirubin (0.2-1.3) mg/dL AST (14-36) U/L ALT (4-34) U/L Alkaline Phosphatase (38-126) U/L Total Protein (6.3-8.2) g/dL Albumin (3.5-5.0) g/dL Coronavirus (PCR) (Not Detectd) 06/10/21 06/10/21 06/10/21 Range/Units 08:01 09:18 09:18 WBC (3.8-10.6) k/uL RBC (3.80-5.40) m/uL Hgb (11.4-16.0) gm/dL Hct (34.0-46.0) % MCV (80.0-100.0) fL MCH (25.0-35.0) pg MCHC (31.0-37.0) g/dL RDW (11.5-15.5) % Plt Count (150-450) k/uL MPV Neutrophils % (Manual) % Band Neuts % (Manual) % Lymphocytes % (Manual) % Monocytes % (Manual) % Neutrophils # (Manual) (1.3-7.7) k/uL Lymphocytes # (Manual) (1.0-4.8) k/uL Monocytes # (Manual) (0-1.0) k/uL Nucleated RBCs (0-0) /100 WBC Manual Slide Review Toxic Vacuolation Hypochromasia PT (9.0-12.0) sec INR (<1.2) APTT (22.0-30.0) sec Sodium (137-145) mmol/L Potassium 5.3 H (3.5-5.1) mmol/L Chloride (98-107) mmol/L Carbon Dioxide (22-30) mmol/L Anion Gap mmol/L BUN (7-17) mg/dL Creatinine (0.52-1.04) mg/dL Est GFR (CKD-EPI)AfAm (>60 ml/min/1.73 sqM) Est GFR (CKD-EPI)NonAf (>60 ml/min/1.73 sqM) Glucose (74-99) mg/dL Lactic Ac Sepsis Rflx Plasma Lactic Acid Ethan 5.5 H* (0.7-2.0) mmol/L Calcium (8.4-10.2) mg/dL Magnesium (1.6-2.3) mg/dL Total Bilirubin (0.2-1.3) mg/dL AST (14-36) U/L ALT (4-34) U/L Alkaline Phosphatase (38-126) U/L Total Protein (6.3-8.2) g/dL Albumin (3.5-5.0) g/dL Coronavirus (PCR) Not Detected (Not Detectd) Disposition Clinical Impression: Abdominal wall abscess, Cellulitis, Sepsis, Hyperkalemia, Admission for hospice care Disposition: ADMITTED IP TO THIS HOSP Is patient prescribed a controlled substance at d/c from ED?: No Referrals: Ja Iyer DO [Primary Care Provider] - 1-2 days Time of Disposition: 10:48
[2021-06-10 07:01] LABS: Calcium 9.5 mg/dL (8.4-10.2); Total Bilirubin 1.7 mg/dL (0.2-1.3)
[2021-06-10 07:13] LABS: Potassium 6.3 mmol/L (3.5-5.1)
[2021-06-10 07:16] LABS: HCT 32.3 % (34.0-46.0); HGB 10.1 gm/dL (11.4-16.0); Hypochromasia Slight; MCH 29.6 pg (25.0-35.0); MCHC 31.4 g/dL (31.0-37.0); MCV 94.6 fL (80.0-100.0); Mean Platelet Volume 8.2; Platelet Count 411 k/uL (150-450); RBC 3.42 m/uL (3.80-5.40); RDW 15.1 % (11.5-15.5)
[2021-06-10] MEDS ORDERED: PIPERACILLIN-TAZOBACTAM 3.375 GM in SODIUM CHLORIDE 0.9% 100 ML IVPB STA (07:46)
[2021-06-10 07:59] LABS: INR 1.1 (<1.2); Partial Thromboplastin Time 23.6 sec (22.0-30.0); Prothrombin Time 11.5 sec (9.0-12.0)
--- NOTE | 2021-06-10 08:06 | CT ---
EXAMINATION TYPE: CT abdomen pelvis wo con DATE OF EXAM: 06/10/2021 COMPARISON: CT 02/09/2017 HISTORY: pain, cellulitis, edema CT DLP: 1479.4 mGycm Automated exposure control for dose reduction was used. TECHNIQUE: Helical acquisition of images from the lung bases through the pelvis. FINDINGS: Lack of intravenous contrast could compromise sensitivity. LUNG BASES: Patchy areas of increased attenuation are present within the lung bases, no pleural peric ardial effusion. There is extensive abnormal mixed gas and soft tissue attenuation within the subcutaneous fat, cathet er is coursing into a pocket within the subcutaneous fat over the anterior abdominal wall with a ball oon anchoring the tube in place suggesting Augustin catheter placement, there is no adequate drainage metzger spected.. Overall the area of abnormal density measures approximately 27 cm in transverse dimension b y 20 cm in cephalad to caudal dimension by 10 cm in AP dimension and abuts the anterior abdominal wal l and extends the subcutaneous fat in the regular configuration, there are changes of subcutaneous ed anila with pockets of abnormal soft tissue mixed with air density. The gas density is not confined to l ocalize abscess within the subcutaneous fat and much of the area. AORTA: No significant abnormality is appreciated. LIVER/GB: No significant abnormality is appreciated within the liver, high attenuation within the gal lbladder may represent tumefactive sludge. PANCREAS: No significant abnormality is seen. SPLEEN: No significant abnormality is seen. ADRENALS: No significant abnormality is seen. KIDNEYS: No significant abnormality is seen. REPRODUCTIVE ORGANS: Not seen URINARY BLADDER: Augustin catheter is in place, the urinary bladder is nondistended. BOWEL: No significant abnormality is seen. FREE AIR: No Free Air is visible. ASCITES: None visible. PELVIC ADENOPATHY: None visualized. RETROPERITONEAL ADENOPATHY: No Retroperitoneal Adenopathy visible. OSSEOUS STRUCTURES: Degenerative disc changes and facet arthropathy are noted in the lower lumbar sp ine, there is thoracic spondylosis IMPRESSION: EXTENSIVE SUBCUTANEOUS PHLEGMON, ABSCESS WITH INDWELLING TUBE DESCRIBED. CORRELATE FOR POSSIBLE PN EUMONIA, RECOMMEND SURGICAL CONSULT FOR INCISION AND DRAINAGE.
[2021-06-10] MEDS ORDERED: DEXTROSE 50% SYRINGE 50 ML IVP ONE (08:25)
[2021-06-10] MEDS ORDERED: ALBUTEROL NEB (CONC) 2.5 MG/0.5 ML INHALATION ONE (08:25)
[2021-06-10] MEDS ORDERED: INSULIN REGULAR 100 UNIT/ML VIAL (IV) IV STA (08:25)
[2021-06-10] MEDS ORDERED: SODIUM BICARB 8.4% 50 ML SYR (1 MEQ/ML) IV ONE (08:25)
[2021-06-10 09:33] LABS: Band Neutrophils % 21 %; Lymphocytes # (M) 0.24 k/uL (1.0-4.8); Monocytes # (M) 0.24 k/uL (0-1.0); Neutrophils % (M) 71 %; Nucleated Red Blood Cells 0 /100 WBC (0-0); Total Cells Counted 100; Toxic Vacuolation Present
[2021-06-10] MEDS ORDERED: LORazepam 2 MG/ML INJ IV STA (10:24)
[2021-06-10] MEDS ORDERED: LORazepam 0.5 MG TAB PO PRN (10:48)
[2021-06-10] MEDS ORDERED: NALOXONE 0.4 MG/ML 1 ML VIAL IV PRN (10:48)
[2021-06-10] MEDS ORDERED: HYDROmorphone 0.5 MG/0.5 ML SYRINGE IVP PRN (10:48)
[2021-06-10 11:22] VITALS: TEMP 99.1
--- NOTE | 2021-06-10 15:01 | P.HPIM ---
History of Present Illness H&P Date: 06/10/21 Chief Complaint: Abdominal wall infection This is a 70-year-old patient, who is her sent in from [facility]. Patient is brought in by the EMS. They were called out to bring the patient in for treatment and evaluation of for infected PEG tube. Abdomen was found to be red distended and firm. Patient has no schizophrenia with failure to thrive. Nonepileptic 3. Patient was not communicating with the EMS. By the nurse patient's baseline is AO 2. Lungs are reported to be clear and EKG shows sinus tachycardia. Computed tomography scan of the abdomen and pelvis in the ER showed extensive abnormal mixed gas and soft tissue attenuation in the subcu taneous fat. Patient already has a diagnosis of failure to thrive. The physician assistant teaching professor David spoke to the patient's son and after further discussion it was decided to make the patient comfortable/hospice. No feeding. Hospice was apparently already initiated before coming in. And this cannot happen until tomorrow. Patient is somewhat delirious moving limbs. Not really able to communicate. Review of systems: Unable to obtain as patient is not able to communicate Past medical history to include: Failure to thrive, CK D, GERD, insomnia, vitamin D deficiency, constipation, metabolic encephalopathy, schizophrenia Social history: No history of smoking or alcohol reported. Currently a resident of [facility] Family history: Patient cannot tell Physical examination: VITAL SIGNS: 101.1, 109, 20, 118 s/62, 98% room air GENERAL: BMI 36.6, awake, somewhat restless, delirious. EYES: Pupils equal. Conjunctiva normal. HEENT: [External appearance of nose and ears normal, oral cavity dry mucous membranes. NECK: JVD unable to assess; masses not palpable. HEART: First and second heart sounds are normal; no edema. LUNGS: Respiratory rate increased; clear to auscultation. ABDOMEN: Soft, area of induration on the right side of the abdomen, tender, PEG tube site present , liver spleen not palpable, no masses palpable. PSYCH: Patient is delirious not able to assessl. MUSCULOSKELETAL:No Clubbing/cyanosis;muscles-grossly intact NEUROLOGICAL: Patient has no facial asymmetry. Mumbling. Moving her limbs.. LYMPHATICS: No lymph nodes palpable in the axilla and neck INVESTIGATIONS, reviewed in the clinical context: White count 6 hemoglobin 10.1 platelets 411 sodium 127 potassium 6.3 bicarb 18 BUN 54 creatinine 3.37 Lactic acid 5.4 total bilirubin 1.7 albumin 3 Coronavirus [PCR]: Not detected EKG tracing personally reviewed by me-sinus tachycardia CT chest abdomen pelvis: Extensive abnormal mixed gas and soft tissue attenuation within the subcutaneous fat catheters coursing into the pocket within the subcutaneous fat over the anterior abdominal wall with the balloon anchoring the tube in place/Augustin catheter. Area of abnormal density 27 cm x 20 cm and 10 cm in AP dimension. In the anterior abdominal wall. Assessment and plan: -Anterior abdominal wall abscess, secondary to ask extravasated tube feeding. Augustin catheter/feeding tube removed in the ER. -Sepsis secondary to abdominal wall abscess -Acute delirium secondary to sepsis -Chronic schizophrenia advanced -Failure to thrive -Chronic kidney disease, stage III with a baseline creatinine of 1.81 previously -Acute kidney injury possibly a combination of prerenal and ATN from decreased oral intake and sepsis -Acute metabolic acidosis from renal failure -Hyponatremia -Hyperkalemia secondary to acute kidney injury -Lactic acidosis from sepsis Patient's son discussed with the CARLOS ALBERTO Rosado in the ER to make the patient comfort care. Patient will be going to hospice tomorrow. Meantime Comfort Care septal be initiated. No artificial feeding. resource development manager consulted for disposition for tomorrow. Past Medical History Past Medical History: Hyperlipidemia, Hypertension Additional Past Medical History / Comment(s): chronic kidney disease, rhabdomyolysis, failure to thrive History of Any Multi-Drug Resistant Organisms: None Reported Past Surgical History: Section Past Anesthesia/Blood Transfusion Reactions: No Reported Reaction Past Psychological History: No Psychological Hx Reported, Schizoaffective Disorder, Schizophrenia Smoking Status: Smoker, current status unknown Past Alcohol Use History: None Reported Past Drug Use History: None Reported - Past Family History Mother Family Medical History: No Reported History Additional Family Medical History / Comment(s): father with heart disease Medications and Allergies Home Medications Medication Instructions Recorded Confirmed Type OLANZapine [ZyPREXA] 10 mg PEG/G-TUBE HS 01/19/19 06/10/21 History ALPRAZolam [Xanax] 0.25 mg PEG/G-TUBE Q6H PRN 06/10/21 06/10/21 History Acetaminophen Tab [Tylenol] 650 mg PEG/G-TUBE Q4H PRN 06/10/21 06/10/21 History Aspirin 81 mg PEG/G-TUBE DAILY 06/10/21 06/10/21 History Atorvastatin [Lipitor] 40 mg PEG/G-TUBE HS 06/10/21 06/10/21 History Cholecalciferol [Vitamin D3 (25 25 mcg PEG/G-TUBE DAILY 06/10/21 06/10/21 History Mcg = 1000 Iu)] Citalopram Hydrobromide [CeleXA] 20 mg PEG/G-TUBE DAILY 06/10/21 06/10/21 History Pantoprazole [Protonix] 40 mg PEG/G-TUBE DAILY 06/10/21 06/10/21 History Sennosides [Senna] 8.6 mg PEG/G-TUBE BID PRN 06/10/21 06/10/21 History Allergies Allergy/AdvReac Type Severity Reaction Status Date / Time Penicillins Allergy Unknown Verified 06/10/21 08:13 Physical Exam Vitals: Vital Signs Temp Pulse Resp BP Pulse Ox 06/10/21 13:25 85 24 119/87 98 06/10/21 11:19 99.1 F 98 24 110/65 97 06/10/21 09:06 104/53 06/10/21 08:55 108 H 06/10/21 08:40 108 H 06/10/21 06:02 101.1 F H 109 H 20 118/62 98 Intake and Output 06/09/21 06/10/21 06/10/21 22:59 06:59 14:59 Other: Weight 99.79 kg Results CBC & Chem 7: 06/10/21 06:33 06/10/21 09:18 Labs: Abnormal Lab Results - Last 24 Hours (Table) 06/10/21 06/10/21 06/10/21 Range/Units 06:33 06:33 06:33 RBC 3.42 L (3.80-5.40) m/uL Hgb 10.1 L (11.4-16.0) gm/dL Hct 32.3 L (34.0-46.0) % Lymphocytes # (Manual) 0.24 L (1.0-4.8) k/uL Sodium 127 L (137-145) mmol/L Potassium 6.3 H* (3.5-5.1) mmol/L Chloride 94 L (98-107) mmol/L Carbon Dioxide 18 L (22-30) mmol/L BUN 54 H (7-17) mg/dL Creatinine 3.37 H (0.52-1.04) mg/dL Glucose 129 H (74-99) mg/dL Plasma Lactic Acid Ethan 5.4 H* (0.7-2.0) mmol/L Total Bilirubin 1.7 H (0.2-1.3) mg/dL AST 38 H (14-36) U/L Total Protein 6.0 L (6.3-8.2) g/dL Albumin 3.0 L (3.5-5.0) g/dL 06/10/21 06/10/21 Range/Units 09:18 09:18 RBC (3.80-5.40) m/uL Hgb (11.4-16.0) gm/dL Hct (34.0-46.0) % Lymphocytes # (Manual) (1.0-4.8) k/uL Sodium (137-145) mmol/L Potassium 5.3 H (3.5-5.1) mmol/L Chloride (98-107) mmol/L Carbon Dioxide (22-30) mmol/L BUN (7-17) mg/dL Creatinine (0.52-1.04) mg/dL Glucose (74-99) mg/dL Plasma Lactic Acid Ethan 5.5 H* (0.7-2.0) mmol/L Total Bilirubin (0.2-1.3) mg/dL AST (14-36) U/L Total Protein (6.3-8.2) g/dL Albumin (3.5-5.0) g/dL
[2021-06-10 15:04] VITALS: BP 148/70; PULSE 93; RESP 22
--- NOTE | 2021-06-11 19:52 | P.DS ---
Providers Expected date of discharge: 06/11/21 Primary care physician: Ja [facility] Course: Chief Complaint: Abdominal wall infection This is a 70-year-old patient, who is her sent in from [facility]. Patient is brought in by the EMS. They were called out to bring the patient in for treatment and evaluation of for infected PEG tube. Abdomen was found to be red distended and firm. Patient has no schizophrenia with failure to thrive. Nonepileptic 3. Patient was not communicating with the EMS. By the nurse patient's baseline is AO 2. Lungs are reported to be clear and EKG shows sinus tachycardia. Computed tomography scan of the abdomen and pelvis in the ER showed extensive abnormal mixed gas and soft tissue attenuation in the subcutaneous fat. Patient already has a diagnosis of failure to thrive. The physician neurology physician assistant David spoke to the patient's son and after further discussion it was decided to make the patient comfortable/hospice. No feeding. Hospice was apparently already initiated before coming in. And this cannot happen until tomorrow. Patient is somewhat delirious moving limbs. Not really able to communicate. June 11: Arrangements are being made for patient to to be discharged with hospice. Patient otherwise comfortable. Worrying about spontaneously. Does not appear to be in pain. Discharge planning discussion more than 35 minutes Review of systems: Unable to obtain as patient is not able to communicate Past medical history to include: Failure to thrive, CK D, GERD, insomnia, vitamin D deficiency, constipation, metabolic encephalopathy, schizophrenia Social history: No history of smoking or alcohol reported. Currently a resident of [facility] Family history: Patient cannot tell Physical examination: VITAL SIGNS: 99.1, 93, 22, 1 40 x 70, 96% room air GENERAL: , delirious. EYES: Pupils equal. Conjunctiva normal. HEENT: [External appearance of nose and ears normal, oral cavity dry mucous membranes. NECK: JVD unable to assess; masses not palpable. HEART: First and second heart sounds are normal; no edema. LUNGS: Respiratory rate increased; clear to auscultation. ABDOMEN: Soft, area of induration on the right side of the abdomen, tender, PEG tube site present , liver spleen not palpable, no masses palpable. PSYCH: Patient is delirious not able to assessl. MUSCULOSKELETAL:No Clubbing/cyanosis;muscles-grossly intact NEUROLOGICAL: Patient has no facial asymmetry. Mumbling. Moving her limbs.. INVESTIGATIONS, reviewed in the clinical context: White count 6 hemoglobin 10.1 platelets 411 sodium 127 potassium 6.3 bicarb 18 BUN 54 creatinine 3.37 Lactic acid 5.4 total bilirubin 1.7 albumin 3 Coronavirus [PCR]: Not detected EKG tracing personally reviewed by me-sinus tachycardia CT chest abdomen pelvis: Extensive abnormal mixed gas and soft tissue attenuation within the subcutaneous fat catheters coursing into the pocket within the subcutaneous fat over the anterior abdominal wall with the balloon anchoring the tube in place/Augustin catheter. Area of abnormal density 27 cm x 20 cm and 10 cm in AP dimension. In the anterior abdominal wall. Assessment and plan: -Anterior abdominal wall abscess, secondary to extravasated tube feeding. Augustin catheter/feeding tube removed in the ER. -Sepsis secondary to abdominal wall abscess -Acute delirium secondary to sepsis -Chronic schizophrenia advanced -Failure to thrive -Chronic kidney disease, stage III with a baseline creatinine of 1.81 previously -Acute kidney injury possibly a combination of prerenal and ATN from decreased oral intake and sepsis -Acute metabolic acidosis from renal failure -Hyponatremia -Hyperkalemia secondary to acute kidney injury -Lactic acidosis from sepsis Disposition: [facility] Plan - Discharge Summary Follow up Appointment(s)/Referral(s): Ja Iyer DO [Primary Care Provider] - 1-2 days Discharge Disposition: ADMITTED IP TO THIS HOSP
== END 2021-06-10 17:26 | disposition other institution (70) ==
LOC: EC 06:02
DX: A41.9 Sepsis, unspecified organism (principal); L02.211 Cutaneous abscess of abdominal wall; L03.311 Cellulitis of abdominal wall; E87.5 Hyperkalemia; Z51.5 Encounter for palliative care; E78.5 Hyperlipidemia, unspecified; I12.9 Hypertensive chronic kidney disease with stage 1 through stage 4 chronic kidney disease, or unspecified chronic kidney disease; N18.9 Chronic kidney disease, unspecified; F17.200 Nicotine dependence, unspecified, uncomplicated; Z20.822 Contact with and (suspected) exposure to COVID-19; Z79.82 Long term (current) use of aspirin; Z88.0 Allergy status to penicillin
CPT/HCPCS: 99284; 96374; 96375 ×2; 36415; 94640; 93005; 80053; 83605; 83735; 84132; 85025; 85610; 85730; 87040; 87077; 87186; 87635; 74176; J2543; J2060; J0131; J1170

== ENCOUNTER 2021-06-10 14:54 | Observation (INO) | payer MEDICARE, OTHER ==
[2021-06-10] MEDS ORDERED: ATROPINE OPHTH SOLN 1% 5ML BTL SUBLINGUAL PRN (17:32)
[2021-06-10] MEDS ORDERED: MORPHINE SULFATE 2 MG/ML SYRINGE IV PRN (17:32)
[2021-06-10] MEDS ORDERED: ACETAMINOPHEN SUPPOSITORY 650 MG SUPP RECTAL PRN (17:32)
[2021-06-10] MEDS ORDERED: LORazepam 2 MG/ML INJ IV PRN (17:32)
[2021-06-10] MEDS ORDERED: SCOPOLAMINE 1.5MG/72HR PATCH TRANSDERM SCH (18:00)
[2021-06-11 09:06] VITALS: BP 102/40; PULSE 106
[2021-06-11 09:08] VITALS: TEMP 100.5
[2021-06-11 11:25] VITALS: RESP 16
== END 2021-06-11 15:47 ==
LOC: INTOOBSV 14:55 → 5NMEDONC 14:55
PROVIDERS: ADMIT Hospitalist; ATTEND Hospitalist
DX: L02.211 Cutaneous abscess of abdominal wall (principal); K94.29 Other complications of gastrostomy; A41.9 Sepsis, unspecified organism; R00.0 Tachycardia, unspecified; I12.9 Hypertensive chronic kidney disease with stage 1 through stage 4 chronic kidney disease, or unspecified chronic kidney disease; N18.30 Chronic kidney disease, stage 3 unspecified; N17.9 Acute kidney failure, unspecified; R62.7 Adult failure to thrive; Z68.36 Body mass index [BMI] 36.0-36.9, adult; K21.9 Gastro-esophageal reflux disease without esophagitis; G47.00 Insomnia, unspecified; E55.9 Vitamin D deficiency, unspecified; K59.00 Constipation, unspecified; G93.41 Metabolic encephalopathy; F20.9 Schizophrenia, unspecified; E87.1 Hypo-osmolality and hyponatremia; E78.5 Hyperlipidemia, unspecified; M62.82 Rhabdomyolysis; Z20.822 Contact with and (suspected) exposure to COVID-19; Z79.899 Other long term (current) drug therapy; Z88.0 Allergy status to penicillin; Z82.49 Family history of ischemic heart disease and other diseases of the circulatory system
CPT/HCPCS: G0378 ×2; G0379